=== PATIENT | female | born 1960 | race Caucasian/White ===

== ENCOUNTER 2019-03-30 13:21 | Outpatient (CLI) | payer BC, OTHER ==
[2019-03-30] MEDS ORDERED: OMNIPAQUE 350 MG/ML, 150 ML BOTTLE ONE (15:31)
== END 2019-03-30 23:59 | disposition home or self-care (01) ==
LOC: RAD 13:21
PROVIDERS: ATTEND Urology
DX: N20.0 Calculus of kidney (principal); K57.30 Diverticulosis of large intestine without perforation or abscess without bleeding; M51.35 Other intervertebral disc degeneration, thoracolumbar region; Z90.49 Acquired absence of other specified parts of digestive tract
CPT/HCPCS: 74178; Q9967